=== PATIENT | female | born 1995 | race Caucasian/White ===

== ENCOUNTER → 2020-12-01 15:32 | Outpatient (CLI) | payer OTHER, SELFPAY | PROVIDERS: PCP Family Medicine; Referring Provider Otolaryngology; Visit Provider Otolaryngology | DX: Z03.818 Encounter for observation for suspected exposure to other biological agents ruled out (principal); Z11.59 Encounter for screening for other viral diseases | CPT/HCPCS: 87635; U0005; U0003 ==

== ENCOUNTER 2020-12-04 06:00 | Day surgery (SDC) | payer OTHER, MEDICAID, SELFPAY ==
[2020-12-04 06:41] LABS: Internal QC Validated? YES +Cl - CLEAR BKGD; Pregnancy, Urine Negative Negative
[2020-12-04 06:48] VITALS: BP 157/92; PULSE 84; RESP 16; TEMP 36.7; O2SAT 99; BMI 52.4
--- NOTE | 2020-12-04 07:21 | PCM.DC.SUM ---
Providers Primary Care Physician: Dr. Thong Cervantes MD Reason For Visit: BMT Medications at Discharge Home Medications NK 11/27/20 Weight / BMI Weight Weight: 152 kg Body Mass Index (BMI) 52.4 ABG / Lab / Microbiology Data Laboratory: Laboratory Results - last 24 hr 12/04/20 06:00: Urine Test Negative Meaningful Use Info Meaningful Use Diagnoses (Choose all that apply): None applicable Discharge Plan Admission Attending Provider: Jeffery Sainz Primary Care Provider: Thong Cervantes Instructions Additional Instructions / Restrictions: Ear drops 5 drops each ear twice a day for 2 days (3 doses total) Discharge Orders/Prescriptions Prescriptions: No Action NK RF: 0 Referrals / Follow Up: Thong Cervantes MD [Primary Care Provider] - Disposition Disposition (needs filled in before D/C Order can be placed): Home, Self Care
[2020-12-04] MEDS: Ciprofloxacin 0.3% 2.5ml Bottle 1 DRP (07:30)
--- NOTE | 2020-12-04 07:42 | OP.PCM_ITS ---
Report of Operation Date of Procedure: 12/04/20 Pre-Operative Diagnosis: chronic serous otitis media Post-Operative Diagnosis: same Surgery/Procedure Performed:: bilateral myringotomy with tubes Surgeon: Jeffery Sainz Type of Anesthesia: General Anesthesiologist: Gallito David Estimated Blood Loss (mL): minimal Description of Procedure: The patient was taken to the operating room on 12/04/2020. The patient was placed in the supine position on the operating room table. The patient was given sufficient general anesthesia. The operating koby roscope was used throughout the entire case. A speculum was inserted into the patient's left ear. Cerumen was removed using a curette. An incision was placed in the anterior inferior quadrant of the tympanic membrane. Fluid was suctioned from the middle ear space. A T tube was attempted multiple times however, I did not like the placement of the tube secondary to a very small middle ear space. I thus elected to place a collar button and it was placed without difficulty. Antibiotic drops were instilled into the patient's ear. Next, a speculum was inserted into the patient's right ear. Cerumen was removed using a curette. An incision was placed in the anterior inferior quadrant of the tympanic membrane.Fluid was suctioned from the middle ear. A T tube was placed without difficulty. Antibiotic drops were instilled into the patient's ear. The patient was then awoken. They were brought to the recovery room in stable condition. Blood loss minimal replacement none sponge needle and instrument counts correct at the end of the procedure.
[2020-12-04 07:51] VITALS: BP 151/78; BP 157/92; PULSE 104; RESP 18; TEMP 36.8; O2SAT 95
[2020-12-04 08:00] VITALS: BP 123/92; BP 157/92; PULSE 90; RESP 18; O2SAT 95
[2020-12-04] MEDS: Lactated Ringers 1,000 ML 100 ML IV (08:00)
[2020-12-04 08:15] VITALS: BP 134/71; BP 157/92; PULSE 88; RESP 18; O2SAT 94
[2020-12-04 08:20] VITALS: BP 129/82; BP 157/92; PULSE 86; RESP 18; TEMP 36.3; O2SAT 96
[2020-12-04 09:04] VITALS: BP 157/92
== END 2020-12-04 09:17 | disposition home or self-care (01) ==
LOC: SDC 06:05 → AC 06:07
PROVIDERS: Anesthesiology; PCP Family Medicine; Referring Provider Otolaryngology; Visit Provider Otolaryngology
PROC: (CPT 69436; principal; 2020-12-04 07:25)
DX: H65.22 Chronic serous otitis media, left ear (principal); H66.006 Acute suppurative otitis media without spontaneous rupture of ear drum, recurrent, bilateral; H90.3 Sensorineural hearing loss, bilateral
CPT/HCPCS: 00126; 69436; 81025; J7120; J2405